=== PATIENT | female | born 1945 | race Caucasian/White ===

== ENCOUNTER 2017-01-29 17:45 | Emergency (ER) | payer OTHER ==
[~2017-01-29] VITALS: Ht 157.5 cm; Wt 65.1 kg
[2017-01-29] MEDS ORDERED: SPIR25TA4 PO (18:01)
[2017-01-29] MEDS ORDERED: ALBU0.212 IH (18:01)
[2017-01-29] MEDS ORDERED: ONDA4TAB4 PO (18:01)
[2017-01-29] MEDS ORDERED: MAGN64TA9 PO (18:01)
[2017-01-29] MEDS ORDERED: CALC-1062 PO (18:01)
[2017-01-29] MEDS ORDERED: CARV3.1231 PO (18:01)
[2017-01-29] MEDS ORDERED: BUDE0.25 NEB (18:01)
[2017-01-29] MEDS ORDERED: FURO-152 PO (18:01)
[2017-01-29] MEDS ORDERED: GLIP10TA9 PO (18:01)
[2017-01-29] MEDS ORDERED: MOME45CR20 TP (18:01)
[2017-01-29] MEDS ORDERED: LEVO50TA11 PO (18:01)
[2017-01-29 18:04] LABS: GLUCOSE,POINT OF CARE 115 MG/DL (70-110)
[2017-01-29 18:16] LABS: BASOPHILS % (AUTO) 1.1 % (0.0-2.0); HEMATOCRIT 33.8 % (36-46); HEMOGLOBIN 10.6 g/dL (12.0-16.0); LYMPHOCYTES # (AUTO) 2.4 K/uL (1.0-4.8); LYMPHOCYTES % (AUTO) 28.3 % (22.0-44.0); MEAN CORPUSCULAR HEMOGLOBIN 23.3 pg (26.0-34.0); MEAN CORPUSCULAR HGB CONC 31.3 G/dL (31.0-37.0); MEAN CORPUSCULAR VOLUME 75 fL (80-100); MONOCYTES # (AUTO) 0.8 K/uL (0.1-1.0); MONOCYTES % (AUTO) 9.5 % (2.0-9.0); NEUTROPHILS # (AUTO) 4.9 K/uL (1.8-7.7); NEUTROPHILS % (AUTO) 58.1 % (40.0-70.0); PLATELET COUNT (AUTO) 198 K/uL (150-450); RED BLOOD CELL COUNT(AUTO) 4.53 MIL/uL (4.00-5.20); RED CELL DISTRIBUTION WIDTH 17.3 % (11.5-14.5); WHITE BLOOD COUNT (AUTO) 8.5 K/uL (4.5-11.0)
[2017-01-29 18:20] LABS: RBC MORPHOLOGY COMMENT ABNORMAL RBC MORPH
[2017-01-29 18:25] LABS: ANION GAP 4 mmol/L (8-16); CALCIUM, TOTAL 9.8 mg/dL (8.8-10.5); CARBON DIOXIDE 34 mmol/L (22-29); CHLORIDE 99 mmol/L (98-107); CREATININE 0.97 mg/dL (0.60-1.30); GLOMERULAR FILTR. RATE CALC 57 mL/min (>60); POTASSIUM 3.6 mmol/L (3.5-5.1); SODIUM SERUM 137 mmol/L (136-145); UREA NITROGEN, BLOOD 9 mg/dL (7-18)
[2017-01-29 18:30] LABS: INR 0.9 (0.9-1.1)
[2017-01-29 18:31] LABS: ALANINE AMINOTRANSFERASE 12 U/L (12-78); ALBUMIN 3.1 g/dL (3.4-5.0); ASPARTATE AMINOTRANSFERASE 15 U/L (15-37); BILIRUBIN,TOTAL 0.2 mg/dL (0.1-1.0); CREATINE KINASE, TOTAL 15 U/L (26-192); TOTAL PROTEIN, SERUM 6.9 g/dL (6.4-8.2)
[2017-01-29 18:33] LABS: ABG A-A DIFF O2 49.7 mmHg (10-20.0); ABG HCO3 30.3 mmol/L (22.0-26.0); ABG OXYHEMOGLOBIN 96.6 % (94.0-100.0); ABG PCO2 43 mmHg (35-45); ABG PH 7.474 (7.35-7.450); ALLEN TEST, BLOOD GAS POSITIVE; TEMPERATURE, FAHRENHEIT, BG 98.6 FAHREN (96.0-98.6)
[2017-01-29 18:41] LABS: B-TYPE NATRIURETIC PEPTIDE 60 pg/mL (0-100)
[2017-01-29 18:55] LABS: IPAP, BG 16 cm H2O
[2017-01-29] MEDS ORDERED: FUROSEMIDE 40 MG/4 ML VIAL IVP ONE (19:45)
[2017-01-29] MEDS ORDERED: METOCLOPRAMIDE HCL 5 MG/ML 2 ML VIAL IVP ONE (19:45)
[2017-01-29 21:33] LABS: APPEARANCE,URINE CLEAR (CLEAR); GLUCOSE, URINE (UA) NEGATIVE (NEGATIVE); KETONES,URINE NEGATIVE (NEGATIVE); LEUKOCYTE ESTERASE ,URINE NEGATIVE (NEGATIVE); OCCULT BLOOD,URINE NEGATIVE (NEGATIVE); PH,URINE 6.5 (5.0-8.0); PROTEIN,URINE NEGATIVE (NEGATIVE)
[2017-01-29 21:34] LABS: ADD UA MICROSCOPIC NO
[2017-01-29 23:54] VITALS: BP 105/60
== END 2017-01-29 23:57 | disposition home or self-care (01) ==
LOC: EMS 17:47
DX: R06.00 Dyspnea, unspecified (principal); R10.84 Generalized abdominal pain; R11.2 Nausea with vomiting, unspecified; I50.9 Heart failure, unspecified; J44.9 Chronic obstructive pulmonary disease, unspecified; E11.9 Type 2 diabetes mellitus without complications; F17.200 Nicotine dependence, unspecified, uncomplicated; Z88.0 Allergy status to penicillin
CPT/HCPCS: 36415; 51702; 71010; 74010; 80053; 81003; 82550; 82805; 82962; 83690; 83880; 84484; 85025; 85610; 85730; 93005; 94660; 96374; 96375; 99285; J1940; J2765